=== PATIENT | female | born 1960 | race Caucasian/White ===

== ENCOUNTER → 2018-06-23 15:29 | Outpatient (CLI) | payer OTHER, SELFPAY ==
--- NOTE | 2018-06-23 15:31 | BI_ITS ---
MAMMOGRAPHY - BILATERAL SCREENING REASON FOR EXAM: Female, 57 years old. Routine annual screening examination. PERTINENT HISTORY: Grandfather with breast cancer. History of bilateral breast reduction. TECHNIQUE: Digital bilateral breast kanchan (3D mammographic acquisition) in the CC and MLO projections. 2-D mediolateral oblique (MLO) and craniocaudad (CC) views of both breasts were obtained. CAD: Full Field Digital Mammography with Computer Added Detection was performed. COMPARISON: Comparison is made with prior study dated May 20, 2017 and May 19, 2016. FINDINGS: Breast Composition: There are scattered areas of fibroglandular density. There are no dominant masses or suspicious calcifications. Stable calcified nodules in both breasts more prominent on the left side. No other significant abnormalities are identified. There has been no significant change since the prior study. BI/SCREENING MAMM (CAD), BILAT IMPRESSION: Stable bilateral screening mammogram. Yearly follow-up mammogram recommended. (A) ASSESSMENT CATEGORY: BIRADS Category 2: Benign. A letter regarding these results will be sent to the patient by the facility within 30 days. Approximately 10% of breast cancers are not detected by mammography. A normal mammogram should not delay biopsy of a clinically suspicious abnormality. [id number] Electronically Signed: Gil Villa MD at 8:20 EST Tel [phone], Service support ,
== END ==
PROVIDERS: Family Provider Family Medicine; PCP Family Medicine; Visit Provider Family Medicine
DX: Z12.31 Encounter for screening mammogram for malignant neoplasm of breast (principal)
CPT/HCPCS: 77063; 77067

== ENCOUNTER → 2018-11-04 10:34 | Outpatient (CLI) | payer OTHER, SELFPAY ==
[2018-11-04 10:11] VITALS: BMI 30.8
[2018-11-04 10:37] LABS: Mucous, Urine 0 SEEN /hpf (<or=2+)
[2018-11-04 12:32] LABS: Color, Urine Yellow (Yellow); Glucose, Dipstick Normal (Normal); Ketone-Dipstick 5 mg/dl (Negative); Leukocyte Esterase-Dipstick 25 /ul (Negative); Nitrite-Dipstick Positive (Negative); Occult Blood-Urine 25 /ul (Negative); Protein-Dipstick 30 mg/dl (Negative); Urine Clarity Sl. Cloudy (Clear); Urine Urobilinogen 8 mg/dl (Normal)
[2018-11-04 12:35] LABS: Urine Bilirubin Dipstick 3 mg/dL (Negative)
[2018-11-04 12:50] LABS: Bacteria 2+ /hpf (None Seen); Red Blood Cells-Urine 0-5 SEEN /hpf (0-5); Squamous Epithelial Cells - UA 10-25 SEEN /hpf (5-10); White Blood Cells 0-5 SEEN /hpf (0-5)
== END ==
PROVIDERS: Family Provider Family Medicine; PCP Family Medicine; Visit Provider Nurse Practitioner Family
DX: R31.9 Hematuria, unspecified (principal)
CPT/HCPCS: 81001; 87086; 87088

== ENCOUNTER → 2019-05-02 15:00 | Outpatient (CLI) | payer OTHER, SELFPAY ==
[2019-05-02 14:27] VITALS: BMI 30.8
[2019-05-03 10:51] LABS: Mucous, Urine 0 SEEN /hpf (<or=2+); White Blood Cells 0 SEEN /hpf (0-5)
[2019-05-03 12:21] LABS: Color, Urine Yellow (Yellow); Glucose, Dipstick Normal (Normal); Ketone-Dipstick Negative (Negative); Leukocyte Esterase-Dipstick Negative /ul (Negative); Nitrite-Dipstick Negative (Negative); Occult Blood-Urine Negative /ul (Negative); Protein-Dipstick Negative (Negative); Specific Gravity, Urine 1.005 (1.002-1.030); Urine Bilirubin Dipstick Negative (Negative); Urine Clarity Clear (Clear); Urine Urobilinogen Normal (Normal); Urine pH 6.5 (5.0 - 8.0)
[2019-05-03 12:30] LABS: Bacteria RARE /hpf (None Seen); Red Blood Cells-Urine 0-5 SEEN /hpf (0-5); Squamous Epithelial Cells - UA 0-5 SEEN /hpf (5-10)
== END ==
PROVIDERS: Family Provider Family Medicine; PCP Family Medicine; Visit Provider Internal Medicine
DX: R31.9 Hematuria, unspecified (principal)
CPT/HCPCS: 81001

== ENCOUNTER → 2019-06-07 17:32 | Outpatient (CLI) | payer OTHER, SELFPAY ==
[2019-05-17 16:27] VITALS: BMI 31.0
--- NOTE | 2019-06-07 17:40 | CT_ITS ---
STUDY: CT ABDOMEN AND PELVIS WITH AND WITHOUT CONTRAST REASON FOR EXAM: Female, 58 years old. Hematuria RADIATION DOSAGE (If Supplied By Facility): CTDIvol = ( 21.90 ) mGy, DLP = ( 3322.55 ) mGycm TECHNIQUE: Transaxial images were obtained from the dome of the diaphragm to the symphysis pubis without oral contrast. IV Isovue 300 100 was administered. Sagittal and coronal images were reconstructed. Individualized dose optimization techniques were used for this CT. COMPARISON: None. FINDINGS: 2 mm nonspecific peripheral left lower lobe nodular density. The visualized portions of the heart are within normal limits. Normal liver. Normal gallbladder and extrahepatic biliary system. Granulomatous calcifications in the spleen. Normal pancreas. Normal bilateral adrenal glands. Normal right kidney. 2 mm nonobstructive stone with parapelvic cysts in the left kidney. Normal visualized stomach. Normal small intestine. Normal colon. The appendix is visualized and appears normal. Normal abdominal aorta. Normal inferior vena cava. Normal retroperitoneum. Normal urinary bladder. Normal abdominal wall. Grade 1 spondylolisthesis at L4-5. CT/CT Abd/Pelvis W/WO Contrast IMPRESSION: Nonobstructing left renal stone with parapelvic cysts. No hydronephrosis. Nonspecific peripheral left lower lobe nodule. Electronically Signed: Jake Zimmer DO at 18:10 EDT Tel [phone], Service support ,
== END ==
LOC: CT 17:33
PROVIDERS: Family Provider Family Medicine; PCP Family Medicine; Referring Provider Urology; Visit Provider Urology
DX: R31.9 Hematuria, unspecified (principal)
CPT/HCPCS: 74178; Q9967

== ENCOUNTER → 2019-09-23 13:50 | Outpatient (CLI) | payer OTHER, SELFPAY ==
[2019-09-15 16:01] VITALS: BMI 32.1
--- NOTE | 2019-09-23 14:07 | RAD_ITS ---
STUDY: X-RAY - LEFT SHOULDER REASON FOR EXAM: Female, 59 years old. mid-humerus pain for approx 25 years; recently radiating into hand and neck; hx of fibromyalgia TECHNIQUE: 4 view(s) of the shoulder. COMPARISON: None. FINDINGS: Normal glenohumeral articulation. Normal acromioclavicular joint. Normal acromion. Normal humeral head and visualized proximal humerus. The soft tissue structures are unremarkable. Normal visualized pulmonary apex. RAD/Shoulder min 2 Views IMPRESSION: Normal x-ray examination of the shoulder. Electronically Signed: Sandrine Gray, at 17:33 EST Tel , Service support ,
--- NOTE | 2019-09-23 14:07 | RAD_ITS ---
STUDY: X-RAY - LEFT HUMERUS REASON FOR EXAM: Female, 59 years old. pain in mid-humerus for approx 25 years; recently radiating into hand and neck; hx of fibromyalgia TECHNIQUE: 2 view(s) of the humerus. COMPARISON: None. FINDINGS: Normal visualized humerus. There is no demonstrated fracture or osseous destructive process. There is no demonstrated soft tissue abnormality. RAD/Humerus min 2 Views IMPRESSION: Normal x-ray examination of the humerus. Electronically Signed: Sandrine Gray, at 19:07 EST Tel , Service support ,
== END ==
PROVIDERS: PCP Family Medicine; Referring Provider Family Medicine; Visit Provider Family Medicine
DX: M79.602 Pain in left arm (principal); M79.89 Other specified soft tissue disorders
CPT/HCPCS: 73030; 73060

== ENCOUNTER → 2020-05-29 15:36 | Outpatient (CLI) | payer OTHER, SELFPAY ==
[2020-05-03 14:03] VITALS: BMI 32.4
--- NOTE | 2020-05-29 15:37 | BI_ITS ---
MAMMOGRAPHY - BILATERAL SCREENING REASON FOR EXAM: Female, 59 years old. Routine annual screening examination. PERTINENT HISTORY: Grandfather with breast cancer. Bilateral breast reduction surgery as well as right excisional breast biopsy. TECHNIQUE: Digital bilateral breast peyton (3D mammographic acquisition) in the CC and MLO projections. 2-D mediolateral oblique (MLO) and craniocaudad (CC) views of both breasts were obtained. CAD: Full Field Digital Mammography with Computer Added Detection was performed. COMPARISON: Comparison is made with prior study dated 06/23/2018 and 05/20/2017 FINDINGS: Breast Composition: The breasts are almost entirely fatty. There are no dominant masses or suspicious calcifications. Stable densely calcified nodules in the breasts more prominent in the left breast. No other significant abnormalities are identified. There has been no significant change since the prior study. BI/SCREEN MAMM (CAD) W/PEYTON BILAT IMPRESSION: Stable bilateral screening mammogram. Yearly follow-up mammogram recommended. (A) ASSESSMENT CATEGORY: BIRADS Category 2: Benign. A letter regarding these results will be sent to the patient by the facility within 30 days. Approximately 10% of breast cancers are not detected by mammography. A normal mammogram should not delay biopsy of a clinically suspicious abnormality. [id number] Electronically Signed: Gil Villa, at 8:13 EDT , Service support ,
--- NOTE | 2020-05-29 15:41 | BD_ITS ---
STUDY: DUAL ENERGY X-RAY ABSORPTIOMETRY / DXA REASON FOR EXAM: Female, 59 years old. 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 COMPARISON: None. FINDINGS: Lumbar Spine (L1-L4): g/cm2 (1.125) / T-score (-0.5) / Z-score (0.6) Findings are suggestive of normal bone density with a low fracture risk. Left Femur Total: g/cm2 (0.848) / T-score (-1.3) / Z-score (-0.4) Left Femoral Neck: g/cm2 (0.831) / T-score (-1.5) / Z-score (-0.3) Right Femur Total: g/cm2 (0.864) / T-score (-1.1) / Z-score (-0.3) Right Femoral Neck: g/cm2 (0.797) / T-score (-1.7) / Z-score (-0.6) BD/Dexa Bone Density Study IMPRESSION: The patient is considered osteopenic as outlined below according to World [employer] Organization (WHO) criteria with a moderate fracture risk. Reference Information: The T-score is the number of standard deviations above or below the standard which is normal for young adults at their peak bone mineral density. The World Health Organization (WHO) interprets the T-scores as follows: Above -1 Normal bone density Between -1 and -2.5 Osteopenia Equal to / or below -2.5 Osteoporosis As a practical clinical guideline, osteopenia may be graded as follows: Mild -1 through -1.5 Moderate -1.6 through -2.0 Severe -2.1 through -2.4 The Z-score is the number of standard deviations above or below age-matched controls. A Z-score of less than -1.5 would be considered abnormal. References: 1. NIH Osteoporosis and Related Bone Diseases www osteo.org 2. International Society for Clinical Densitometry www iscd.org 3. National Osteoporosis Foundation www nof.org Electronically Signed: Gil Villa, at 9:28 EDT , Service support ,
== END ==
PROVIDERS: PCP Family Medicine; Referring Provider Family Medicine; Visit Provider Family Medicine
DX: Z12.31 Encounter for screening mammogram for malignant neoplasm of breast (principal); Z78.0 Asymptomatic menopausal state; M85.80 Other specified disorders of bone density and structure, unspecified site
CPT/HCPCS: 77063; 77067; 77080

== ENCOUNTER → 2020-08-13 07:51 | Outpatient (CLI) | payer OTHER, SELFPAY ==
[2020-05-03 14:03] VITALS: BMI 32.4
--- NOTE | 2020-08-13 07:56 | CT_ITS ---
STUDY: CT ABDOMEN AND PELVIS WITHOUT CONTRAST REASON FOR EXAM: Female, 60 years old. LOW BACK PAIN, KIDNEY STONE RADIATION DOSAGE (If Supplied By Facility): CTDIvol = ( 12.71 ) mGy, DLP = ( 647.55 ) mGycm TECHNIQUE: Transaxial images were obtained from the dome of the diaphragm to the symphysis pubis without oral contrast, and without intravenous contrast. Sagittal and coronal images were reconstructed. Individualized dose optimization techniques were used for this CT. COMPARISON: Comparison is made with prior examination dated 06/07/2019. FINDINGS: The visualized lung bases are unremarkable. The visualized portions of the heart are within normal limits. Normal liver. Normal gallbladder and extrahepatic biliary system. Normal spleen. Normal pancreas. Normal bilateral adrenal glands. Normal right kidney. Stable small left parapelvic renal cysts. Normal visualized stomach. Normal small intestine. Normal colon. The appendix is visualized and appears normal. Normal abdominal aorta. Normal inferior vena cava. Normal retroperitoneum. Normal urinary bladder. There is a small umbilical hernia containing fat. Grade 1 spondylolisthesis of L4 on L5. CT/Abdomen/Pelvis without Cont IMPRESSION: No acute abnormality is seen. Electronically Signed: Gil Villa, at 15:47 EST , Service support ,
== END ==
PROVIDERS: PCP Family Medicine; Referring Provider Urology; Visit Provider Urology
DX: N20.0 Calculus of kidney (principal); M54.5 Low back pain
CPT/HCPCS: 74176

== ENCOUNTER → 2020-08-31 16:14 | Outpatient (CLI) | payer OTHER, SELFPAY ==
[2020-08-31 11:26] VITALS: BMI 32.3
--- NOTE | 2020-08-31 11:30 | HEM_PTH ---
PATIENT: CARLEY PA LOC: [facility] U#:[id number] AGE/SX: 64/F ROOM: RE08/31/[address]: Dr. Binu Fried MD : 1960 BED: DIS: SPEC #: [id number] RECD: 08/31/20 16:03 STATUS: MICHAEL DANIELE #: [id number] JULIA: 08/31/20 11:[address]: Binu Freid DEPT: SURGICAL PATHOLOGY RECD BY: Opla Blanton ENTERED: 09/03/20 07:48 SP TYPE: HEMORRHOID OTHR DR: Dr. Ethan Winchester, DO Tissues: HEMORRHOIDS Procedures: Surgery Specimen Level III HEADER OPERATION: Hemorrhoidectomy PRE-OP DIAGNOSIS: Thrombosed hemorrhoid TISSUE SUBMITTED: Hemorrhoid tissue MICROSCOPIC DIAGNOSIS Hemorrhoids, hemorrhoidectomy: Submucosal vascular ectasia and thrombosis consistent with hemorrhoids. AM:gulshan 09/04/2020 MICROSCOPIC DESCRIPTION Slides are reviewed. GROSS DESCRIPTION Received in fixative is one container labeled with the patient's name and designated hemorrhoid. The specimen consists of multiple fragments of burgess mucosal tissue and blood clot measuring in aggregate 2.5 x 2 1 cm. Sections reveal congested and hemorrhagic cut surfaces. Account Installer sections are submitted in one cassette. / SJ:gulshan 09/03/20 TC:5 CPT: 96872
== END ==
PROVIDERS: PCP Family Medicine; Referring Provider Surgery; Visit Provider Surgery
DX: K64.5 Perianal venous thrombosis (principal)
CPT/HCPCS: 88304

== ENCOUNTER → 2021-01-01 14:58 | Outpatient (CLI) | payer OTHER, SELFPAY ==
[2021-01-01 14:25] VITALS: BMI 34.2
[2021-01-01 17:16] LABS: Anion Gap 7 (5-15); BUN 16 mg/dL (7-18); BUN/Creat Ratio 19.9 RATIO (10-20); Calcium,Total 9.6 mg/dL (8.5-10.1); Chloride 103 mmol/L (98-107); EST Glomerular Filtration Rate 78 mL/min (>60); Est Glom Filt Rate - Afr Amer 94 mL/min (>60); Glucose 74 mg/dL (74-106); Potassium 4.4 mmol/L (3.5-5.1); Sodium Level 140 mmol/L (136-145); Thyroid Stim Hormone (TSH) 2.43 uIU/mL (0.358-3.74)
== END ==
PROVIDERS: PCP Family Medicine; Referring Provider Family Medicine; Visit Provider Family Medicine
DX: M79.7 Fibromyalgia (principal); E03.9 Hypothyroidism, unspecified
CPT/HCPCS: 36415; 80048; 84439; 84443

== ENCOUNTER 2021-03-20 17:36 | Emergency (ER) | payer OTHER, SELFPAY ==
[2021-02-05 10:12] VITALS: BMI 34.2
[2021-03-20 17:39] VITALS: BP 124/84; PULSE 116; RESP 24; TEMP 36.7; O2SAT 98; BMI 33.2
--- NOTE | 2021-03-20 17:59 | EKG12_ITS ---
Test Reason : CP Blood Pressure : / mmHG Vent. Rate : 111 BPM Atrial Rate : 111 BPM P-R Int : 126 ms QRS Dur : 080 ms QT Int : 314 ms P-R-T Axes : 026 055 035 degrees QTc Int : 427 ms Sinus tachycardia Nonspecific ST abnormality Abnormal ECG Confirmed by CHEL SALDAÑA, ÁLVARO ([id number]), manuscript editor ISABEL LAM ([id number]) on 03/22/2021 9:33:01 AM Referred By: GRICEL Confirmed By:ABRAHAM MILLIGAN MD
[2021-03-20 18:06] VITALS: O2SAT 97
--- NOTE | 2021-03-20 18:15 | RAD_ITS ---
STUDY: X-RAY CHEST REASON FOR EXAM: Female, 60 years old. chest pain TECHNIQUE: AP portable COMPARISON: None. FINDINGS: Mild nonspecific elevation of right hemidiaphragm. Lungs are clear.. There is no demonstrated pleural abnormality. Normal size heart. Normal mediastinum and marta. Normal visualized pulmonary arteries. Normal visualized aortic arch and descending thoracic aorta. Normal visualized thoracic spine. Normal visualized ribs, clavicles, and shoulders. There is no demonstrated abnormality of the visualized soft tissue structures of the upper abdomen. RAD/Chest 1 View (Portable) IMPRESSION: No acute cardiopulmonary pathology Electronically Signed: Иван Montes De Oca MD at 18:51 EDT , Service support ,
--- NOTE | 2021-03-20 18:28 | CT_ITS ---
STUDY: CTA CHEST REASON FOR EXAM: Female, 60 years old. chest pain RADIATION DOSAGE (If Supplied By Facility): CTDIvol = ( 12.12 ) mGy, DLP = ( 476.51 ) mGycm TECHNIQUE: The examination was performed with the intravenous administration of IV 100mL Isovue-370. Post-processing of the angiographic images was performed, with multiplanar reformation and 3D reconstruction. Individualized dose optimization techniques were used for this CT. COMPARISON: None. FINDINGS: Normal enhancement of the main pulmonary artery and right and left pulmonary arteries. Normal enhancement of the bilateral peripheral pulmonary arteries. There is no demonstrated pulmonary embolism. Normal thoracic aorta and visualized great vessels. There is no demonstrated aortic dissection. Normal heart and pericardium. Small calcified mediastinal nodes. Small calcified bilateral hilar nodes. Normal visualized trachea and bronchi. The lungs are well expanded. Patchy area of groundglass opacity in the right middle lobe which may be consistent with changes of Covid 19 pneumonia. Tiny calcified granulomata in both upper lobes. Normal pleura. Rim calcified nodule in left breast possibly representing fibroadenoma Normal osseous structures. Nonspecific diffuse fatty infiltrated liver.. CT/CTA Chest W/WO Contrast IMPRESSION: Groundglass opacity in the right middle lobe which may be consistent with Covid 19 pneumonia. Old granulomatous disease. No evidence for pulmonary embolus Electronically Signed: Иван Montes De Oca MD at 19:42 EDT , Service support ,
[2021-03-20 18:35] LABS: Absolute Lymphocyte Count 1.47 X10^3/uL (0.83-4.51); Basophil# 0.03 X10^3/uL; Basophil% 0.6 % (0-1); Eosinophil# 0.02 X10^3/uL; Eosinophils% 0.4 % (0-5); Hematocrit 45.1 % (37-47); Hemoglobin 15.5 g/dL (12.0-15.0); Lymphocyte # 1.47 X10^3/ul (0.83-4.51); Lymphocyte % 28.3 % (19-41); Mean Corp Hgb Conc 34.4 g/dL (32-36); Mean Corpuscular Hgb 31.8 pg (27.0-32.0); Mean Corpuscular Volume 92.6 fL (81-99); Monocyte# 0.64 X10^3/uL; Monocyte% 12.3 % (0-10); NRBC Flagged by Analyzer 0 % (0-5); Neutrophil # 3.02 X10^3/uL (2.7-7.7); Platelet Count 223 K/mm3 (150-450); RBC Distribution Width CV 12.7 % (11.6-14.6); Red Blood Count 4.87 M/mm3 (4.2-5.4); White Blood Count 5.2 K/mm3 (4.4-11.0)
[2021-03-20 18:52] LABS: D-Dimer Quantitative (DVT/PE) <= 0.27 FEU/ug/m (0.27-0.49)
[2021-03-20 18:53] VITALS: BP 117/88; PULSE 116; RESP 16; O2SAT 97
[2021-03-20 18:54] LABS: AST(SGOT) 25 U/L (15-37); Alanine Aminotransfer ALT/SGPT 36 U/L (13-56); Albumin, Serum 3.6 g/dL (3.2-5.0); Alkaline Phosphatase 98 U/L (45-117); Anion Gap 11 (5-15); BUN 17 mg/dL (7-18); BUN/Creat Ratio 18.6 RATIO (10-20); Bilirubin, Direct 0.13 mg/dL (0.00-0.30); Calcium,Total 8.7 mg/dL (8.5-10.1); Chloride 102 mmol/L (98-107); Creatinine, Serum 0.92 mg/dL (0.55-1.02); EST Glomerular Filtration Rate 67 mL/min (>60); Est Glom Filt Rate - Afr Amer 81 mL/min (>60); Estimated Creatinine Clearance 54.46 ml/min; Globulin 3.9 g/dL (2.2-4.2); Glucose 121 mg/dL (74-106); Potassium 3.6 mmol/L (3.5-5.1); Protein, Total 7.5 g/dL (6.4-8.2); Sodium Level 135 mmol/L (136-145); Troponin-I HS 3.6 pg/mL (3.0-53.7)
[2021-03-20 19:00] VITALS: BP 115/66; PULSE 105; RESP 16; O2SAT 97
[2021-03-20 19:11] LABS: Procalcitonin 0.09 ng/mL (0.00-0.09)
--- NOTE | 2021-03-20 20:18 | ED.VIS.CHEST ---
HPI History of Present Illness Chief Complaint: Chest Pain Narrative Narrative: 60-year-old female presenting with 4 days of symptoms of COVID-19 including cough, chills, chest pain. Patient denies any history of cardiac disease or pulmonary disease. She is a non-smoker. Patient states he recently traveled to [place] to see family that she states while she was there she thought about getting her Covid vaccine and she returned however when she returned she was symptomatic. Patient describes a sharp chest pain in the center of her chest. She has not had a fever. She feels otherwise well. She is eating ejecting normally. She is making normal urine and stool. [facility] Medical History Fibromyalgia Hypothyroidism Left shoulder pain Thrombosed external hemorrhoid Home Medications levothyroxine 25 mcg tablet 25 mcg PO DAILY #90 tab 08/31/20 [Rx Last Taken Unknown] lisinopril 20 mg tablet See Rx Instructions .ROUTE .COMPLEX #90 tab 10/09/20 [Rx Last Taken Unknown] duloxetine 60 mg capsule,delayed release 60 mg PO DAILY #90 cap 01/01/21 [Rx Last Taken Unknown] cholecalciferol (vitamin D3) 1,250 mcg (50,000 unit) capsule 50,000 unit PO QWEEK #20 cap 02/13/21 [Rx Last Taken Unknown] Allergy/AdvReac Type Severity Reaction Status Date / Time ibuprofen Allergy Unknown SOB, Verified 03/20/21 17:37 Vomiting Family History Mother Lung replaced by transplant Diabetes Father Heart disease Diabetes Surgical History History of colonoscopy History of endoscopy History of hysterectomy Hx of breast reduction, elective Social History Smoking Status: Never smoker alcohol intake: never substance use type: does not use what type of physical activity do you participate in: none ROS ROS ED Constitutional Constitutional ED: Reports chills; Denies fever(s) or sweats Eyes Eyes: Denies blurry vision or change in vision ENT ENT ED: Reports sore throat; Denies rhinorrhea Cardiovascular Cardiovascular: Reports chest pain and racing heartbeat; Denies palpitations Respiratory/Chest Respiratory/Chest: Reports cough and dyspnea; Denies sputum Gastrointestinal Gastrointestinal: Denies abdominal pain, constipation, diarrhea, nausea or vomiting Genitourinary Genitourinary ED: Denies dysuria or hematuria Musculoskeletal Musculoskeletal: Reports myalgias; Denies arthralgias Integumentary Denies Abrasions or rash Neurologic Neurologic: Reports headache(s); Denies paresthesias EXAM Physical Exam Const Vital Signs: 03/20/21 17:39 03/20/21 17:43 03/20/21 18:06 Temperature 98.1 F Temperature Source Temporal Pulse Rate 116 H Respiratory Rate 24 H Respiratory Effort Short of Breath Blood Pressure 124/84 H Blood Pressure Mean 97 Pulse Ox 98 97 Oxygen Delivery Method Room Air Room Air 03/20/21 18:53 03/20/21 19:00 Temperature Temperature Source Pulse Rate 116 H 105 H Respiratory Rate 16 16 Respiratory Effort Blood Pressure 117/88 H 115/66 Blood Pressure Mean 97 82 Pulse Ox 97 97 Oxygen Delivery Method Room Air Room Air Positive well nourished General Appearance ED: NAD; Negative for pallor HEENT Reports moist mucous membranes normocephalic and atraumatic Eyes PERRL and EOMs intact bilaterally Resp normal respiratory effort Effort and Inspection: respiratory distress Cardio regular rhythm Rate: tachycardic GI normal to inspection, nondistended, normoactive bowel sounds Neuro oriented x3 Sensorium / Orientation: awake and alert Psych mental status grossly normal Skin no rashes or lesions noted and no wounds General Skin Exam: Negative for jaundice or pallor Heart Score History: Slightly/Non-Suspicious ECG: Normal Age: >45 - <65 years Risk Factors: No Risk Factors Troponin: </= Normal Limit Score: 1 MDM MDM MDM Narrative Medical decision making narrative: Patient presenting with chest pain that she has had since last night. Given that it is greater than 24 hours of pain that she has a negative troponin and EKG which on my interpretation shows a normal sinus rhythm with a ventricular of 111 bpm without signs of ST elevation or depression I do not believe this is cardiac in nature. Patient's lab work is normal. Renal function electrolytes are normal. Procalcitonin negative. Chest x-ray on my interpretation shows no acute cardiopulmonary process and the radiologist does agree. Given the patient has recent travel and Covid positive I did do a D-dimer which was normal, however after discussing with the patient will obtain a CTA of the chest. CTA of the chest is negative for PE but does show groundglass opacity in the right middle lobe. This would be consistent with patient's Covid diagnosis. She is not requiring any oxygen. She does not qualify for outpatient remdesivir. Patient counseled on all findings and she is given strict return precautions. She is counseled to monitor her pulse ox at home. If she has any severe symptoms such as worsening chest pain or difficulty breathing she is return to the ER immediately. Patient acknowledges understanding. Impression: 1. Chest pain 2. History of COVID-19 pneumonitis Lab Data Labs: Laboratory Results - last 24 hr 03/20/21 03/20/21 03/20/21 17:50 17:50 17:50 WBC 5.2 RBC 4.87 Hgb 15.5 H Hct 45.1 MCV 92.6 MCH 31.8 MCHC 34.4 RDW Std Deviation 43.0 RDW Coeff of Krista 12.7 Plt Count 223 MPV 10.0 Immature Gran % (Auto) 0.400 Neut % (Auto) 58.0 Lymph % (Auto) 28.3 [place] % (Auto) 12.3 H Eos % (Auto) 0.4 Baso % (Auto) 0.6 Absolute Neuts (auto) 3.0 Absolute Lymphs (auto) 1.47 Nucleated RBC % 0 D-Dimer Quant (PE/DVT) Sodium 135 L Potassium 3.6 Chloride 102 Carbon Dioxide 22.0 Anion Gap 11 BUN 17 Creatinine 0.92 Estim Creat Clear Calc 54.46 Est GFR (MDRD) Af Amer 81 Est GFR (MDRD) Non-Af 67 BUN/Creatinine Ratio 18.6 Glucose 121 H Calcium 8.7 Total Bilirubin 0.80 Direct Bilirubin 0.13 AST 25 ALT 36 Alkaline Phosphatase 98 Troponin I High Sens 3.6 Total Protein 7.5 Albumin 3.6 Globulin 3.9 Procalcitonin 0.09 03/20/21 18:37 WBC RBC Hgb Hct MCV MCH MCHC RDW Std Deviation RDW Coeff of Krista Plt Count MPV Immature Gran % (Auto) Neut % (Auto) Lymph % (Auto) [place] % (Auto) Eos % (Auto) Baso % (Auto) Absolute Neuts (auto) Absolute Lymphs (auto) Nucleated RBC % D-Dimer Quant (PE/DVT) <= 0.27 Sodium Potassium Chloride Carbon Dioxide Anion Gap BUN Creatinine Estim Creat Clear Calc Est GFR (MDRD) Af Amer Est GFR (MDRD) Non-Af BUN/Creatinine Ratio Glucose Calcium Total Bilirubin Direct Bilirubin AST ALT Alkaline Phosphatase Troponin I High Sens Total Protein Albumin Globulin Procalcitonin Radiography Diagnostic Testing: Radiology Impression Chest X-Ray 03/20/21 18:15 IMPRESSION: No acute cardiopulmonary pathology Electronically Signed: Иван Montes De Oca MD at 18:51 EDT , Service support , Chest CTA 03/20/21 18:28 IMPRESSION: Groundglass opacity in the right middle lobe which may be consistent with Covid 19 pneumonia. Old granulomatous disease. No evidence for pulmonary embolus Electronically Signed: Иван Montes De Oca MD at 19:42 EDT , Service support , Discharge Plan Triage Chief Complaint: Chest Pain ED Provider: Zackary Leos Dx/Rx/DC Orders Instructions: Coronavirus Disease 2019 (COVID-19): Caring for Yourself or Others Prescriptions: No Action levothyroxine [Euthyrox] 25 mcg tablet 25 mcg PO DAILY Qty: 90 RF: 2 duloxetine [Cymbalta] 60 mg capsule,delayed release(DR/EC) 60 mg PO DAILY Qty: 90 RF: 1 lisinopril 20 mg tablet See Rx Instructions .ROUTE .COMPLEX Qty: 90 RF: 1 cholecalciferol (vitamin D3) 1,250 mcg (50,000 unit) capsule 50,000 unit PO QWEEK Qty: 20 RF: 3 Primary Care Provider: Ethan Winchester Referrals: Ethan Winchester, DO [Primary Care Provider] - Disposition Disposition: Home, Self Care
[2021-03-20 20:22] VITALS: BP 119/64; PULSE 104; RESP 18; O2SAT 96
== END 2021-03-20 20:28 | disposition home or self-care (01) ==
PROVIDERS: Emergency Provider Student in an Organized Health Care Education/Training Program; PCP Family Medicine
DX: R07.9 Chest pain, unspecified (principal); E03.9 Hypothyroidism, unspecified; M79.7 Fibromyalgia; Z86.16 Personal history of COVID-19
CPT/HCPCS: 71045; 71275; 80048; 80076; 84145; 84484; 85025; 85379; 93005; 99284; J7040; Q9967; A4216

== ENCOUNTER 2021-04-01 10:33 | Emergency (ER) | payer OTHER, SELFPAY ==
[2021-04-01 10:34] VITALS: BP 123/91; PULSE 106; RESP 16; TEMP 35.9; O2SAT 93; BMI 31.8
--- NOTE | 2021-04-01 11:50 | CT_ITS ---
STUDY: CT BRAIN WITHOUT CONTRAST REASON FOR EXAM: Female, 60 years old. Headaches. RADIATION DOSAGE (If Supplied By Facility): CTDIvol = ( 44.99 ) mGy, DLP = ( 796.11 ) mGycm TECHNIQUE: Transaxial CT imaging of the brain was performed without administration of intravenous contrast material. Individualized dose optimization techniques were used for this CT. COMPARISON: No relevant priors. FINDINGS: Normal soft tissue structures. Normal calvarium. Normal size ventricles and extra-axial spaces for the patient''s age. Normal white matter tracts of the cerebral hemispheres. Normal basal ganglia and thalami. Normal brainstem. Normal cerebellum. There is no intracranial hemorrhage. There are no findings of an acute ischemic infarction. Air fluid levels seen in both maxillary sinuses worse on the right side and compatible with sinusitis. CT/Brain/Head without Contrast IMPRESSION: Maxillary sinusitis. Electronically Signed: Gil Villa MD at 12:52 EDT , Service support ,
--- NOTE | 2021-04-01 11:51 | EX.ED.VIS.HA ---
HPI History of Present Illness Chief Complaint: Headache Informant: patient Onset/Context/Timing Onset: Weeks (1) Context: Gradual Timing: Continuous Quality -Headache: Positive for Sharp, Dull and Throbbing Location: Generalized Worsened by: Nothing Relieved by: Nothing Associated Symptoms/Injury Associated Symptoms: Positive for Nausea, Vomiting and Sinus Pressure; Negative for Fever, Sore Throat, Numbness, Tingling, Preceding Aura, Visual Changes, Blurred Vision, Photophobia and Visual Loss Injury - ARITA: Negative for Direct Trauma Narrative Narrative: Patient presents with headache that has been getting worse over the past week. Patient states it is gradually gotten worse. Patient states it started on the left side of her head but is now a generalized headache. Patient describes her pain as sharp, dull, aching, burning, and throbbing. Patient states nothing makes it better nothing makes it worse. Patient admits to some nausea and vomiting. Patient also admits to some sinus pressure. Patient admits to mild photophobia. Patient denies any scotoma. Patient denies any blurry vision or other changes in her vision. Patient denies any trauma or injury. [facility] Medical History Fibromyalgia Hypothyroidism Left shoulder pain Thrombosed external hemorrhoid Home Medications levothyroxine 25 mcg tablet 25 mcg PO DAILY #90 tab 08/31/20 [Rx Last Taken Unknown] lisinopril 20 mg tablet See Rx Instructions .ROUTE .COMPLEX #90 tab 10/09/20 [Rx Last Taken Unknown] duloxetine 60 mg capsule,delayed release 60 mg PO DAILY #90 cap 01/01/21 [Rx Last Taken Unknown] cholecalciferol (vitamin D3) 1,250 mcg (50,000 unit) capsule 50,000 unit PO QWEEK #20 cap 02/13/21 [Rx Last Taken Unknown] Allergy/AdvReac Type Severity Reaction Status Date / Time ibuprofen Allergy Unknown SOB, Verified 04/01/21 10:34 Vomiting Family History Mother Lung replaced by transplant Diabetes Father Heart disease Diabetes Surgical History History of colonoscopy History of endoscopy History of hysterectomy Hx of breast reduction, elective Social History Smoking Status: Never smoker alcohol intake: never substance use type: does not use what type of physical activity do you participate in: none ROS ROS ED Constitutional Constitutional ED: Reports chills and subjective; Denies fever(s) Eyes Eyes: Denies blurry vision or change in vision ENT ENT ED: Denies rhinorrhea or sore throat Cardiovascular Cardiovascular: Denies chest pain or palpitations Respiratory/Chest Respiratory/Chest: Reports cough; Denies dyspnea Gastrointestinal Gastrointestinal: Reports nausea and vomiting Genitourinary Genitourinary ED: Denies dysuria or hematuria Musculoskeletal Musculoskeletal: Reports neck pain; Denies back pain Integumentary Denies abscess or rash Neurologic Neurologic: Reports headache(s); Denies weakness Allergic/Immunologic Allergic/Immunologic ED: Denies mouth swelling or urticaria EXAM Physical Exam Const Vital Signs: 04/01/21 10:34 04/01/21 14:15 Temperature 96.6 F L Temperature Source Temporal Pulse Rate 106 H Respiratory Rate 16 18 Blood Pressure 123/91 H 152/92 H Blood Pressure Mean 101 Pulse Ox 93 Oxygen Delivery Method Room Air Positive well nourished and well developed General Appearance ED: well developed HEENT Reports moist mucous membranes Neck supple and no JVD Resp normal respiratory effort and clear to auscultation bilaterally Cardio regular rate, regular rhythm and no murmurs GI normal to inspection, nondistended, normoactive bowel sounds and non-tender Palpation: soft Extremity normal to inspection General Extremety ED: Negative for edema or tenderness General Extremity: Negative for edema Neuro oriented x3, CN's II-XII intact bilaterally and no sensory deficits noted Sensorium / Orientation: awake and alert Motor Exam: strength 5/5 throughout Psych mental status grossly normal Skin no rashes or lesions noted MDM MDM MDM Narrative Medical decision making narrative: Patient was given IV fluids, Reglan, and Benadryl. CT scan of the brain was obtained. There is some maxillary sinusitis but there is no acute intracranial abnormality. Patient is feeling better on reevaluation. Patient was instructed to rest in a dark quiet room. Patient was instructed to follow-up with her primary care physician in 5 to 7 days. Patient understood and was agreeable with the plan. All questions were answered. Radiography Diagnostic Testing: Radiology Impression Brain CT 04/01/21 11:50 IMPRESSION: Maxillary sinusitis. Electronically Signed: Gil Villa MD at 12:52 EDT , Service support , Discharge Plan Triage Chief Complaint: Headache ED Provider: Mic Rockwell Dx/Rx/DC Orders Clinical Impression: Headache Instructions: ED Headache Unspecified Prescriptions: No Action levothyroxine [Euthyrox] 25 mcg tablet 25 mcg PO DAILY Qty: 90 RF: 2 duloxetine [Cymbalta] 60 mg capsule,delayed release(DR/EC) 60 mg PO DAILY Qty: 90 RF: 1 lisinopril 20 mg tablet See Rx Instructions .ROUTE .COMPLEX Qty: 90 RF: 1 cholecalciferol (vitamin D3) 1,250 mcg (50,000 unit) capsule 50,000 unit PO QWEEK Qty: 20 RF: 3 Primary Care Provider: Ethan Winchester Referrals: Ethan Winchester, DO [Primary Care Provider] - 3-5 Days Disposition Disposition: Home, Self Care Discharge Date/Time: 04/01/21 14:15
[2021-04-01] MEDS: 0.9% Normal Saline 1,000 ML 999 ML IV (12:09)
[2021-04-01] MEDS: Metoclopramide 10 MG/2 ML Vial IV (12:09)
[2021-04-01] MEDS: DiphenhydrAMINE 50 MG/ML Syringe 25 MG IV (12:09)
[2021-04-01 14:15] VITALS: BP 152/92; RESP 18
== END 2021-04-01 14:15 | disposition home or self-care (01) ==
PROVIDERS: Emergency Provider Emergency Medicine; PCP Family Medicine
DX: R51.9 Headache, unspecified (principal); R11.2 Nausea with vomiting, unspecified; J32.0 Chronic maxillary sinusitis; E03.9 Hypothyroidism, unspecified; M79.7 Fibromyalgia
CPT/HCPCS: 70450; 96361; 96374; 96375; 99283; J7030; A4216

== ENCOUNTER → 2021-05-13 15:56 | Outpatient (CLI) | payer OTHER, SELFPAY ==
--- NOTE | 2021-05-13 15:57 | EKG12_ITS ---
Test Reason : TACHYCARDIA Blood Pressure : / mmHG Vent. Rate : 108 BPM Atrial Rate : 108 BPM P-R Int : 130 ms QRS Dur : 082 ms QT Int : 340 ms P-R-T Axes : 042 048 034 degrees QTc Int : 455 ms Sinus tachycardia Otherwise normal ECG Confirmed by MAN SALDAÑA, ADAM ([id number]), copy editor ISABEL LAM ([id number]) on 05/14/2021 7:59:24 AM Referred By: Shanika Gonzalez Confirmed By:ADAM CONWAY MD
== END ==
PROVIDERS: PCP Family Medicine; Referring Provider Physician Assistant; Visit Provider Physician Assistant
DX: R00.2 Palpitations (principal)
CPT/HCPCS: 93005

== ENCOUNTER → 2021-06-03 09:53 | Outpatient (CLI) | payer OTHER, SELFPAY | PROVIDERS: PCP Family Medicine; Referring Provider Physician Assistant; Visit Provider Physician Assistant | DX: R00.0 Tachycardia, unspecified (principal); R00.2 Palpitations; Z86.16 Personal history of COVID-19 | CPT/HCPCS: 93225; 93226 ==

== ENCOUNTER → 2021-06-14 15:10 | Outpatient (CLI) | payer OTHER, SELFPAY ==
--- NOTE | 2021-06-14 15:51 | BI_ITS ---
MAMMOGRAPHY - BILATERAL SCREENING REASON FOR EXAM: Female, 60 years old. Routine annual screening examination. PERTINENT HISTORY: Grandmother with breast cancer. History of prior bilateral breast reduction surgeries and right breast biopsies. TECHNIQUE: Digital bilateral breast peyton (3D mammographic acquisition) in the CC and MLO projections. 2-D mediolateral oblique (MLO) and craniocaudad (CC) views of both breasts were obtained. CAD: Full Field Digital Mammography with Computer Added Detection was performed. COMPARISON: Comparison is made with prior examination dated 05/29/2020 and 06/23/2008. FINDINGS: Breast Composition: There are scattered areas of fibroglandular density. There are no dominant masses or suspicious calcifications. Stable asymmetry of breast tissue were more breast tissue is seen in the right breast as compared to the left side. Stable calcified nodules in both breasts more prominent in the left breast. No other significant abnormalities are identified. There has been no significant change since the prior study. BI/SCRN MAMM (CAD)W/PEYTON BILAT IMPRESSION: Stable bilateral screening mammogram. Yearly follow-up mammogram recommended. (A) ASSESSMENT CATEGORY: BIRADS Category 2: Benign. A letter regarding these results will be sent to the patient by the facility within 30 days. Approximately 10% of breast cancers are not detected by mammography. A normal mammogram should not delay biopsy of a clinically suspicious abnormality. [id number] Electronically Signed: Gil Villa MD at 8:09 EST , Service support ,
== END ==
PROVIDERS: PCP Family Medicine; Referring Provider Physician Assistant; Visit Provider Physician Assistant
DX: Z12.31 Encounter for screening mammogram for malignant neoplasm of breast (principal)
CPT/HCPCS: 77063; 77067

== ENCOUNTER → 2021-06-20 08:31 | Outpatient (CLI) | payer OTHER, SELFPAY ==
[2021-06-20 12:20] LABS: Absolute Lymphocyte Count 2.06 X10^3/uL (0.83-4.51); Absolute Neutrophil Count 3.4 X10^3/uL (2.0-7.7); Basophil# 0.05 X10^3/uL; Basophil% 0.8 % (0-1); Eosinophil# 0.31 X10^3/uL; Eosinophils% 4.9 % (0-5); Hematocrit 44.3 % (37-47); Hemoglobin 14.6 g/dL (12.0-15.0); Lymphocyte # 2.06 X10^3/ul (0.83-4.51); Lymphocyte % 32.2 % (19-41); Mean Corpuscular Volume 94.1 fL (81-99); Mean Platelet Vol. 10.4 fl (6.2-12.0); Monocyte# 0.54 X10^3/uL; Monocyte% 8.5 % (0-10); NRBC Flagged by Analyzer 0 % (0-5); Neutrophil # 3.42 X10^3/uL (2.7-7.7); Neutrophil % 53.4 % (47-70); Platelet Count 334 K/mm3 (150-450); RBC Distribution Width CV 12.6 % (11.6-14.6); RBC Distribution Width SD 43.7 fl (35.1-43.9); Red Blood Count 4.71 M/mm3 (4.2-5.4); White Blood Count 6.4 K/mm3 (4.4-11.0)
[2021-06-20 12:52] LABS: ALB/GLOB Ratio 0.9 RATIO (0.9-2.4); AST(SGOT) 15 U/L (15-37); Alanine Aminotransfer ALT/SGPT 29 U/L (13-56); Albumin, Serum 3.5 g/dL (3.2-5.0); Alkaline Phosphatase 79 U/L (45-117); Anion Gap 7 (5-15); BUN 17 mg/dL (7-18); BUN/Creat Ratio 21.2 RATIO (10-20); Chloride 105 mmol/L (98-107); EST Glomerular Filtration Rate 78 mL/min (>60); Est Glom Filt Rate - Afr Amer 94 mL/min (>60); Globulin 3.7 g/dL (2.2-4.2); Glucose 92 mg/dL (74-106); Protein, Total 7.2 g/dL (6.4-8.2); Sodium Level 140 mmol/L (136-145); T4 Free Direct 0.84 ng/dL (0.76-1.46); Thyroid Stim Hormone (TSH) 1.86 uIU/mL (0.358-3.74)
== END ==
PROVIDERS: PCP Family Medicine; Referring Provider Physician Assistant; Visit Provider Physician Assistant
DX: R00.2 Palpitations (principal); E03.9 Hypothyroidism, unspecified; I10 Essential (primary) hypertension
CPT/HCPCS: 36415; 80053; 84439; 84443; 85025

== ENCOUNTER 2021-11-07 15:32 | Outpatient (CLI) | payer OTHER, SELFPAY ==
[2021-11-07 15:51] LABS: Bacteria 0 SEEN /hpf (None Seen); Mucous, Urine 0 SEEN /hpf (<or=2+); White Blood Cells 0 SEEN /hpf (0-5)
[2021-11-07 16:38] LABS: Color, Urine Yellow (Yellow); Glucose, Dipstick Normal (Normal); Ketone-Dipstick Negative (Negative); Leukocyte Esterase-Dipstick Negative /ul (Negative); Nitrite-Dipstick Negative (Negative); Occult Blood-Urine 10 /ul (Negative); Protein-Dipstick Negative (Negative); Specific Gravity, Urine 1.015 (1.002-1.030); Urine Bilirubin Dipstick Negative (Negative); Urine Clarity Sl. Cloudy (Clear); Urine Urobilinogen Normal (Normal); Urine pH 6.5 (5.0 - 8.0)
[2021-11-07 16:50] LABS: Amorphous Sediment 1+ URATE; Red Blood Cells-Urine 0-5 SEEN /hpf (0-5); Squamous Epithelial Cells - UA 0-5 SEEN /hpf (5-10)
== END 2021-11-07 23:59 | disposition home or self-care (01) ==
PROVIDERS: PCP Family Medicine; Referring Provider Physician Assistant; Visit Provider Physician Assistant
DX: R32 Unspecified urinary incontinence (principal)
CPT/HCPCS: 81001

== ENCOUNTER → 2021-12-04 | Outpatient (CLI) | payer OTHER, SELFPAY ==
--- NOTE | 2021-12-04 11:51 | US_ITS ---
STUDY: RENAL ULTRASOUND - COMPLETE REASON FOR EXAM: Female, 61 years old. RT FLANK PAIN , HX STONES TECHNIQUE: Ultrasound evaluation of the kidneys was performed with real-time and static paredes-scale imaging. COMPARISON: CT abdomen and pelvis August 13, 2020 FINDINGS: RIGHT KIDNEY: Normal location of the right kidney, which is normal in size. The right kidney measures 10.7 x 5.6 x 5.9 cm. There is a normal cortex of the right kidney. The renal cortex measures 1.5 cm. There is a suggestion of a right-sided peripelvic cyst that may measure up to 1.8 cm. There are no right renal calculi. There is mild hydronephrosis of the right kidney. DISTAL RIGHT URETER: There is non-visualization of the distal right ureter. There is no demonstrated right ureterovesical junction calculus. There is a visualized right ureteral jet. LEFT KIDNEY: Normal location of the left kidney, which is normal in size. The left kidney measures 10.8 x 4.7 x 6.1 cm. There is a normal cortex of the left kidney. The renal cortex measures 1.65 cm. Within the left kidney there are small peripelvic cyst measuring 1.5 x 1.7 and 1.0 x 1.8 cm. There are no left renal calculi. There is no left hydronephrosis. DISTAL LEFT URETER: There is non-visualization of the distal left ureter. There is no demonstrated left ureterovesical junction calculus. There is a visualized left ureteral jet. BLADDER: The distended partially urinary bladder has a volume of 92 ml. For this there is mild wall thickening of 4.7 mm. There is a normal wall thickness of the distended urinary bladder. There is no demonstrated mass within the urinary bladder. There are no demonstrated bladder calculi. US/Kidney and Bladder IMPRESSION: Mild right hydronephrosis. Could consider follow-up CT abdomen and pelvis, renal colic protocol. Small stable left-sided peripelvic cysts. Electronically Signed: Kristina Becerra MD at 0:55 EDT ,
== END | disposition home or self-care (01) ==
LOC: US 11:50
PROVIDERS: PCP Family Medicine; Visit Provider Urology
DX: N20.0 Calculus of kidney (principal); R10.9 Unspecified abdominal pain
CPT/HCPCS: 76770

== ENCOUNTER → 2021-12-20 | Outpatient (CLI) | payer OTHER, SELFPAY ==
--- NOTE | 2021-12-20 17:52 | CT_ITS ---
STUDY: CT ABDOMEN AND PELVIS WITH AND WITHOUT CONTRAST REASON FOR EXAM: Female, 61 years old. FLANK PAIN, HYDRONEPHROSIS RADIATION DOSAGE (If Supplied By Facility): CTDIvol = ( 22.21 ) mGy, DLP = ( 3424.64 ) mGycm TECHNIQUE: Transaxial images were obtained from the dome of the diaphragm to the symphysis pubis without oral contrast. IV 100mL [id number]-300 was administered. Sagittal and coronal images were reconstructed. Individualized dose optimization techniques were used for this CT. COMPARISON: None. FINDINGS: The visualized lung bases are unremarkable. The visualized portions of the heart are within normal limits. Normal liver. Normal gallbladder and extrahepatic biliary system. Normal spleen. Normal pancreas. Normal bilateral adrenal glands. Normal right kidney. Normal left kidney. Normal visualized stomach. Normal small intestine. Normal colon. The appendix is visualized and appears normal. Normal abdominal aorta. Normal inferior vena cava. Normal retroperitoneum. Normal urinary bladder. Normal abdominal wall. Normal osseous structures. CT/CT Abd/Pelvis W/WO Contrast IMPRESSION: Normal unenhanced and enhanced CT of the abdomen and pelvis. Electronically Signed: Fred Gonzalez MD at 0:15 EDT ,
[2021-12-20 18:00] LABS: CREATININE FINGERSTICK 0.9 mg/dL (0.55-1.02); EGFR FINGERSTICK > 60.0000 mL/min (>60)
== END | disposition home or self-care (01) ==
PROVIDERS: PCP Family Medicine; Visit Provider Urology
DX: Z01.812 Encounter for preprocedural laboratory examination (principal); N13.30 Unspecified hydronephrosis; R10.9 Unspecified abdominal pain
CPT/HCPCS: 74178; Q9967